=== PATIENT | female | born 1985 | race Hispanic/Latino ===

== ENCOUNTER 2018-04-17 12:53 | Emergency (ER) | payer BC ==
[2018-04-17] MEDS ORDERED: Morphine 4 MG/ML VIAL ONE (13:43)
[2018-04-17] MEDS ORDERED: Ondansetron ODT 4 MG TAB ONE (13:45)
--- NOTE | 2018-04-17 15:13 | ULT ---
ULTRASOUND GALLBLADDER RIGHT UPPER QUADRANT: Date: 04/17/18 HISTORY: Right flank pain. COMPARISON: None. FINDINGS: Real-time Gomes scale and color Doppler with spectral analysis of the right upper quadrant of the abdo men was performed. Visualized portion of pancreas is unremarkable. Liver measures 14.8 cm in length. There is some sludge in the gallbladder, although wall thickness is normal. Sonographic Calvin's sign is negative. Common bile duct normal. Right kidney measures 9.8 x 3.6 x 4.6 cm. Portal vein is patent with antegrade flow. IMPRESSION: 1. No evidence of cholecystitis. There is gallbladder sludge. 2. No other abnormality of right upper quadrant. POS: [facility]
[2018-04-17] MEDS ORDERED: Promethazine HCl 25 MG/ML VIAL ONE (15:42)
== END 2018-04-17 17:08 | disposition home or self-care (01) ==
LOC: ERS 12:53
DX: R10.11 Right upper quadrant pain (principal); R11.2 Nausea with vomiting, unspecified; F17.210 Nicotine dependence, cigarettes, uncomplicated
CPT/HCPCS: 76705; 96365; 96375; J2270; J2550; Q0162